=== PATIENT | female | born 1975 | race Caucasian/White ===

== ENCOUNTER 2016-08-13 09:05 | Emergency (ER) | payer BC, OTHER ==
[~2016-08-13] VITALS: Ht 165.1 cm; Wt 102.6 kg
[2016-08-13 09:10] VITALS: Ht 165.1 cm; Wt 102.6 kg
[2016-08-13] MEDS ORDERED: ONDANSETRON 4 MG INJ IV STA (09:30)
[2016-08-13] MEDS ORDERED: morphine 4 MG/ML VIAL IV STA (09:30)
[2016-08-13] MEDS ORDERED: SOD CHLORIDE 0.9% 1,000 ML IV STA (09:30)
--- NOTE | 2016-08-13 09:51 | ERD ---
ER Documentation Chief Complaint Date/Time DATE: 08/13/16 TIME: 09:48 Chief Complaint INTERMITTENT EPIGASTRIC PAIN STARTING LAST NIGHT HPI This is a 40-year-old female presenting to the emergency room complaining of intermittent epigastric tenderness since midnight last night. Patient states that the pain comes and goes and when it does come she describes as sudden throbbing 10 out of 10 pain at this moment patient states that her pain is mild. Patient admits to having nausea with 2 episodes of vomiting. She states that she is unsure what makes the pain better or worse. She says it is unrelated to food. She denies any fever or diarrhea. She denies hematemesis. She states her last meal was at 10 PM last night. Patient is with her last menstrual period last week. Patient denies any medical problems at this time however she states that she did have gestational diabetes and gestational hypertension with her previous pregnancies in the past. She denies any abdominal surgeries. ROS All systems reviewed and are negative except as per history of present illness. Medications Home Meds Active Scripts Hydrocodone/Acetaminophen ([place] 5-325 Tablet) 1 Each Tablet, 1 TAB PO Q6H Y for PAIN, #20 TAB Prov:VERN RODRIGUEZ PA-C 08/13/16 Ondansetron (Ondansetron Odt) 4 Mg Tab.rapdis, 4 MG PO Q6H Y for NAUSEA AND/OR VOMITING, #14 TAB Prov:VERN RODRIGUEZ PA-C 08/13/16 Cephalexin* (Keflex*) 500 Mg Capsule, 500 MG PO QID for 10 Days, CAP Prov:VERN RODRIGUEZ PA-C 08/13/16 PMhx/Soc Medical and Surgical Hx: pt denies Medical Hx, pt denies Surgical Hx Physical Exam Vitals Vital Signs Date Time Temp Pulse Resp B/P Pulse Ox O2 Delivery O2 Flow Rate FiO2 08/13/16 09:10 99.7 96 20 145/73 97 Physical Exam GENERAL: well-developed/well-nourished, in no apparent distress, non-toxic appearing HENT: NC/AT, moist mucous membranes EYES: Conjunctiva normal NECK: Supple, no lymphadenopathy PULM: CTA bilaterally, no rales, rhonchi, or wheezing heard CV: Normal S1S2, RRR, good capillary refill GI: Soft, non-distended, tender to palpation epigastric and right upper quadrant Normal bowel sounds, no masses or organomegaly felt on exam No gross peritonitis, no bruits Negative Rovsing, negative Muñoz, negative McBurney's point, Negative CVAT BACK: No masses EXT: No clubbing, cyanosis, or edema NEURO: Alert and Orientated SKIN: Intact, normal turgor PSYCH: Normal mood and mentation Result Diagram: 08/13/16 1000 08/13/16 1000 Results 24 hrs Laboratory Tests Test 08/13/16 10:00 Alanine Aminotransferase (ALT/SGPT) 30IU/L Albumin 4.3g/dl Albumin/Globulin Ratio 0.97 Alkaline Phosphatase 122IU/L Anion Gap 18 Aspartate Amino Transf (AST/SGOT) 22IU/L Basophils # 0.010^3/ul Basophils % 0.2% Blood Urea Nitrogen 12mg/dl Calcium Level 9.3mg/dl Carbon Dioxide Level 27mmol/L Chloride Level 102mmol/L Creatinine 0.52mg/dl Direct Bilirubin 0.00mg/dl Eosinophils # 0.010^3/ul Eosinophils % 0.1% Globulin 4.40g/dl Glucose Level 99mg/dl Hematocrit 42.6% Hemoglobin 14.0g/dl Indirect Bilirubin 0.4mg/dl Lipase 76U/L Lymphocytes # 1.010^3/ul Lymphocytes % 10.8% Mean Corpuscular Hemoglobin 30.6pg Mean Corpuscular Hemoglobin Concent 32.9g/dl Mean Corpuscular Volume 93.2fl Mean Platelet Volume 11.1fl Monocytes # 0.710^3/ul Monocytes % 7.2% Neutrophils # 7.910^3/ul Neutrophils % 81.5% Nucleated Red Blood Cells # 0.010^3/ul Nucleated Red Blood Cells % 0.0/100WBC Platelet Count 93007^3/UL Potassium Level 4.1mmol/L Red Blood Count 4.5710^6/ul Red Cell Distribution Width 15.0% Sodium Level 143mmol/L Total Bilirubin 0.4mg/dl Total Protein 8.7g/dl Urine Bacteria FEW Urine Bilirubin NEGATIVE Urine Clarity CLEAR Urine Color LT. YELLOW Urine Epithelial Cells MODERATE Urine Glucose NEGATIVE% Urine Hemoglobin NEGATIVE Urine Ketones NEGATIVE Urine Leukocyte Esterase 2+ Urine Microscopic RBC NONE SEEN/HPF Urine Microscopic WBC 5-10/HPF Urine Nitrite NEGATIVE Urine Specific [place] 1.015 Urine Total Protein NEGATIVE Urine Urobilinogen 0.2 E.U./dL Urine pH 6.0 White Blood Count 9.710^3/ul Current Medications Medications (Trade) Dose Ordered Sig/Marco [place] Route PRN Reason Start Time Stop Time Status Last Admin Dose Admin Sodium Chloride (NS) 1,000 ml @ 1,000 mls/hr Q1H STAT IV 08/13/16 09:30 08/13/16 10:29 DC 08/13/16 10:04 Morphine Sulfate (morphine) 6 mg ONCE STAT IV 08/13/16 09:30 08/13/16 09:32 DC 08/13/16 10:04 Ondansetron HCl 4 mg 4 mg ONCE STAT IV 08/13/16 09:30 08/13/16 09:32 DC 08/13/16 10:04 Ceftriaxone Sodium (Rocephin) 50 ml @ 100 mls/hr ONCE STAT IVPB 08/13/16 12:07 08/13/16 12:39 DC 08/13/16 12:30 Ketorolac Tromethamine (Toradol) 30 mg ONCE STAT IV 08/13/16 13:05 08/13/16 13:06 DC Procedures/MDM This is a 40-year-old female presenting to the emergency room complaining of intermittent epigastric tenderness with nausea and couple episodes of vomiting since midnight last night, this is likely due to mildly dilated common bile duct and a urinary tract infection versus early pyelonephritis. It is unlikely that patient has bacteremia, cholecystitis, cholangitis, pancreatitis or infected obstructing nephrolithiasis. On examination, patient was afebrile, she has stable vital signs. She does not have any CVA tenderness. She did not seem toxic. IV access was established. Lab work was drawn. CBC did not show any evidence of leukocytosis or anemia. CMP did not show any evidence of renal, liver, or electrolyte abnormalities. Lipase was normal. UA showed evidence of a urinary tract infection with 2+ leukocyte esterase, 5-10 white blood cell count hematuria. Gallbladder ultrasound was done in the ED and radiologist stated: Mild hepatomegaly with mild fatty infiltration. Mildly dilated CBD measuring 8 mm. Mild right-sided hydronephrosis versus extrarenal pelvis. At this time patient's liver enzymes were unremarkable, patient did not have a white count and she is afebrile. I have consulted my supervising physician and we have discussed the patient is suitable to be discharged for outpatient antibiotics and pain medication. In the ED patient was given 1 g of ceftriaxone, morphine, Toradol, Zofran and a liter of fluids. I have reassessed patient and she was doing better. I discussed with patient to return to the ER for any worsening signs or symptoms or not improving as expected. Prescription Keflex for 12 days and [place] was provided. A urine culture was sent out. Patient understands and agrees with this plan Departure Diagnosis: Primary Impression: Dilation of bile duct determined by ultrasound Additional Impression: UTI (urinary tract infection) Urinary tract infection type: acute cystitis Hematuria presence: with hematuria Qualified Code: N30.01 - Acute cystitis with hematuria Condition: Stable VERN RODRIGUEZ PA-C Aug 13, 2016 09:50
[2016-08-13 10:14] LABS: ADD SCAN DIFF NO
[2016-08-13 10:24] LABS: BASOPHILS % 0.2 % (0.0-2.0); EOSINOPHILS % 0.1 % (0.0-7.0); HEMATOCRIT 42.6 % (37.0-47.0); LYMPHOCYTES % 10.8 % (15.0-51.0); MEAN CORPUSCULAR HEMOGLOBIN 30.6 pg (29.0-33.0); MEAN CORPUSCULAR HGB CONC 32.9 g/dl (32.0-37.0); MEAN CORPUSCULAR VOLUME 93.2 fl (82.0-101.0); MEAN PLATELET VOLUME 11.1 fl (7.4-10.4); MONOCYTE # 0.7 10^3/ul (0.3-0.9); MONOCYTES % 7.2 % (0.0-11.0); NEUTROPHIL # 7.9 10^3/ul (1.6-7.5); NEUTROPHILS % 81.5 % (39.0-77.0); PLATELET COUNT 312 10^3/UL (140-415); RED BLOOD COUNT 4.57 10^6/ul (4.20-5.40); WHITE BLOOD COUNT 9.7 10^3/ul (4.8-10.8)
[2016-08-13 10:32] LABS: ALBUMIN 4.3 g/dl (3.3-4.9)
[2016-08-13 10:33] LABS: POTASSIUM 4.1 mmol/L (3.5-5.1)
[2016-08-13 10:34] LABS: ADD UMIC YES; URINE BILIRUBIN (Dip) NEGATIVE (NEGATIVE); URINE BLOOD (Dip) NEGATIVE (NEGATIVE); URINE COLOR LT. YELLOW (YELLOW); URINE GLUCOSE (Dip) NEGATIVE (NEGATIVE); URINE KETONES (Dip) NEGATIVE (NEGATIVE); URINE LEUKOCYTE ESTERASE (Dip) 2+ (NEGATIVE); URINE NITRITE (Dip) NEGATIVE (NEGATIVE); URINE TOTAL PROTEIN (Dip) NEGATIVE (NEGATIVE); URINE UROBILINOGEN (Dip) 0.2 E.U./dL (0.1-1.0)
[2016-08-13 10:35] LABS: ALBUMIN/GLOBULIN RATIO 0.97; BILIRUBIN,INDIRECT 0.4 mg/dl (0-1.1); BILIRUBIN,TOTAL 0.4 mg/dl (0.2-1.3); CREATININE 0.52 mg/dl (0.44-1.00); TOTAL PROTEIN 8.7 g/dl (6.1-8.1)
[2016-08-13 10:36] LABS: CALCIUM 9.3 mg/dl (8.4-10.2)
[2016-08-13 11:04] LABS: BACTERIA,URINE FEW; URINE RBCS NONE SEEN /HPF (0)
--- NOTE | 2016-08-13 12:00 | RADRPT ---
PROCEDURE: US Abdomen. CLINICAL INDICATION: abdominal pain TECHNIQUE: Multiple real-time images were acquired of the patient's right upper quadrant abdomen a nd retroperitoneum utilizing a high resolution transducer. COMPARISON: None FINDINGS: The liver demonstrates slightly increased echogenicity. The liver is enlarged in size and no focal solid lesions are seen. The liver measures 21.1 cm in length. The portal vein is patent with normal direction of flow. No intrahepatic biliary dilatation is seen. No gallstones are identified within the gallbladder. There is no pericholecystic fluid or gallbladd er wall thickening. The common bile duct measures 8 mm in maximal dimension. The visualized portions of the pancreas are unremarkable. The tail of the pancreas is not seen. No free fluid is identified. The right kidney is normal in size, and demonstrate normal echogenicity and cortical thickness. The right kidney measures 11.6 cm in long dimension. There is mild right-sided hydronephrosis versus e xtrarenal pelvis. There are no kidney stones. RPTAT: AA IMPRESSION: Mild hepatomegaly with mild fatty infiltration. Mildly dilated CBD measuring 8 mm. Mild right-sided hydronephrosis versus extrarenal pelvis. .Lucio Baldwin MD, MD Date Time Electronically viewed and signed by .Lucio Baldwin MD, on 08/13/2016 12:00 .S/
[2016-08-13] MEDS ORDERED: CEFTRIAXONE 1 GM/50 ML (PMX) 50 ML IVPB STA (12:07)
[2016-08-13] MEDS ORDERED: CEPH-443 PO (12:25)
[2016-08-13] MEDS ORDERED: PHEN-538 PO (12:25)
[2016-08-13] MEDS ORDERED: ONDA4TAB14 PO (12:28)
[2016-08-13] MEDS ORDERED: KETOROLAC 30 MG INJ IV STA (13:05)
[2016-08-13] MEDS ORDERED: HYDR-906 PO (13:06)
[2016-08-13 13:55] VITALS: RESP 18; TEMP 99.2
[2016-08-13 14:27] VITALS: BP 121/69; PULSE 78
== END 2016-08-13 14:28 | disposition home or self-care (01) ==
LOC: FTE 09:05
DX: K83.8 Other specified diseases of biliary tract (principal); N30.01 Acute cystitis with hematuria; R11.2 Nausea with vomiting, unspecified
CPT/HCPCS: 36415; 76705; 80053; 81001; 81003; 82962; 83690; 85025; 87086; 96374; 96375; 99285; J0696; J1885; J2270; J2405; J7030